=== PATIENT | female | born 1955 | race Caucasian/White ===

== ENCOUNTER 2019-10-16 18:45 | Inpatient (IN) | payer MEDICARE, OTHER, BC ==
[~2019-10-16] VITALS: Ht 154.9 cm; Wt 93.0 kg
--- NOTE | 2019-10-16 19:06 | NUR ---
PT is A/Ox4, BIB RA100 FROM HOME, C/O C/P SINCE TUESDAY. PT IS TACHYPNIC AND SOB ON ARRIVAL. SPO2 91% ON RA, PT PLACED ON SUPPLEMENTAL O2 VIA N/C AT 3 LPM. VSS. SKIN IS WARM AND DRY.
--- NOTE | 2019-10-16 19:08 | NUR ---
SHIFT REPORT GIVEN TO VÍCTOR RIVERA.
--- NOTE | 2019-10-16 19:09 | NUR ---
PT CURRENTLY IS SO ANXIOUS, UNABLE TO ACCURATELY REMEMBER HER MEDICATIONS AND MEDICAL HX. AWAITING FAMILY MEMBERS TO COME, NO PAST RECORDS HERE.
--- NOTE | 2019-10-16 19:10 | NUR ---
RECEIVED HAND OFF AND SBAR FROM OUTGOING DAY SHIFT RN (HERNANDO) PT IS ON HIGH WELLS'S, AOX3 WITH 02 VIA NC AT 3LPM O2SAT AT 97% WITH R AC G20 SALINE LOCK MONITORED ACCORDINGLY WAITING FOR ERMD EXAM NOTED EKG W/ NORMAL RHYTHM AT 95BPM RN ENDORSE NOTICEABLE POSSIBLE LBBB +HX OF AFIB PT C/O CHEST PAIN SINCE TUESDAY CURRENTLY C/O 7/10 PAIN TO R SIDE
[2019-10-16 19:20] LABS: BASOPHILS % (AUTO) 0.2 % (0.0-2.0); EOSINOPHILS % (AUTO) 0.1 % (0.0-7.0); HEMATOCRIT 34.1 % (31.2-41.9); HEMOGLOBIN 11.3 g/dL (10.9-14.3); LYMPHOCYTES # (AUTO) 0.7 K/uL (20.0-40.0); LYMPHOCYTES % (AUTO) 8.3 % (20.5-51.5); MEAN CORPUSCULAR HEMOGLOBIN 27.6 uug (24.7-32.8); MEAN CORPUSCULAR HGB CONC 33 g/dL (32.3-35.6); MEAN CORPUSCULAR VOLUME 83.2 fL (75.5-95.3); MONOCYTES # (AUTO) 0.7 K/uL (2.0-10.0); NEUTROPHILS # (AUTO) 7.2 K/uL (1.8-8.9); NEUTROPHILS % (AUTO) 83.4 % (38.5-71.5); PLATELET COUNT (AUTO) 313 K/uL (179-408); WHITE BLOOD COUNT (AUTO) 8.6 K/uL (3.8-11.8)
[2019-10-16 19:23] LABS: CARBON DIOXIDE 23 mmol/L (21-32); CHLORIDE 97 mmol/L (98-107); CREATININE 1.4 mg/dL (0.6-1.3); POTASSIUM 4.2 mmol/L (3.5-5.1); UREA NITROGEN, BLOOD 22 mg/dL (7-18)
--- NOTE | 2019-10-16 19:25 | NUR ---
ERMD AT BEDSIDE FOR HX AND PHYSICAL
[2019-10-16 19:28] LABS: GLUCOSE 392 mg/dL (74-106)
[2019-10-16] MEDS ORDERED: OSELTAMIVIR PHOSPHATE 75 MG CAPSULE PO ONE (19:30)
[2019-10-16] MEDS ORDERED: AZITHROMYCIN 250 MG TABLET PO ONE (19:30)
[2019-10-16] MEDS ORDERED: VANCOMYCIN 1G/D5W 200 ML PIGGYBACK IV ONE (19:30)
[2019-10-16] MEDS ORDERED: PIPERACILLIN SODIUM/TAZOBACTAM 3.375 G in IV DEXTROSE 5% 50 ML IV ONE (19:30)
[2019-10-16 19:34] LABS: ALANINE AMINOTRANSFERASE 36 U/L (14-59); ALKALINE PHOSPHATASE 49 U/L (50-136); ASPARTATE AMINOTRANSFERASE 21 U/L (15-37); BILIRUBIN,TOTAL 0.4 mg/dL (0.2-1.0); LIPASE 174 U/L (73-393); TOTAL PROTEIN, SERUM 7.9 g/dL (6.4-8.2)
[2019-10-16 19:35] LABS: BILIRUBIN,DIRECT < 0.1 mg/dL (0.0-0.2)
[2019-10-16] MEDS ORDERED: OSELTAMIVIR PHOSPHATE 75 MG CAPSULE ONE (19:36)
[2019-10-16] MEDS ORDERED: PIPERACILLIN/TAZOBACTAM/D5W 50 ML IV ONE (19:36)
[2019-10-16] MEDS ORDERED: AZITHROMYCIN 250 MG TABLET ONE (19:37)
[2019-10-16] MEDS ORDERED: VANCOMYCIN IV 200 ML ONE (19:37)
[2019-10-16 19:46] LABS: THYROID STIMULATING HORMONE 1.562 mIU/mL (0.358-3.740)
[2019-10-16 19:53] LABS: ABG BASE EXCESS -3.6 mmol/L; ABG HCO3 19.2 mmol/L; ABG PCO2 28.1 mmHg (35.0-45.0); ABG PH 7.453 (7.350-7.450); ABG PO2 83.8 mmHg (75.0-100.0); ABG SITE LEFT RADIAL; ABG TOTAL HEMOGLOBIN 11.5 G/dL (12.0-16.0); MetHb 0.3 % (0.0-1.5); O2Hb 94.9 % (94.0-97.0); VENT MODE Nasal Cannula
[2019-10-16] MEDS ORDERED: ASPIRIN 325 MG TABLET PO ONE (20:00)
[2019-10-16] MEDS ORDERED: ENOXAPARIN SODIUM 80 MG/0.8 ML DISP.SYRIN SQ ONE (20:00)
[2019-10-16] MEDS ORDERED: FENO134C PO (20:11)
[2019-10-16] MEDS ORDERED: DOCU250C89 PO (20:11)
[2019-10-16] MEDS ORDERED: PREG50CA PO (20:11)
[2019-10-16] MEDS ORDERED: ERGO500040 PO (20:11)
[2019-10-16] MEDS ORDERED: GLIM4TAB PO (20:11)
[2019-10-16] MEDS ORDERED: GABA-532 PO (20:11)
[2019-10-16] MEDS ORDERED: ESCI10TA PO (20:11)
[2019-10-16] MEDS ORDERED: METO50TA16 PO (20:11)
[2019-10-16] MEDS ORDERED: EMPA10TA PO (20:11)
[2019-10-16] MEDS ORDERED: LOSA50TA3 PO (20:11)
[2019-10-16] MEDS ORDERED: ASPI81TA31 PO (20:11)
[2019-10-16] MEDS ORDERED: SIMV-49 PO (20:11)
[2019-10-16] MEDS ORDERED: AZIT250T13 PO (20:11)
[2019-10-16] MEDS ORDERED: PROM118S4 PO (20:11)
[2019-10-16] MEDS ORDERED: ENOXAPARIN SODIUM 100 MG/ML DISP.SYRIN SQ ONE (20:19)
[2019-10-16] MEDS ORDERED: ASPIRIN 325 MG TABLET ONE (20:20)
[2019-10-16] MEDS ORDERED: FUROSEMIDE 20 MG/2 ML VIAL IV ONE (20:30)
[2019-10-16] MEDS ORDERED: FUROSEMIDE 20 MG/2 ML VIAL ONE (20:41)
[2019-10-16] MEDS ORDERED: MAGNESIUM HYDROXIDE 30 ML LIQUID UDC PO PRN (20:45)
[2019-10-16] MEDS ORDERED: HYDROCODONE/APAP 5-325MG TABLET PO PRN (20:45)
[2019-10-16] MEDS ORDERED: Z GUARD REMEDY PASTE 57 GM TUBE TOP PRN (20:45)
[2019-10-16] MEDS ORDERED: ACETAMINOPHEN 325 MG TABLET PO PRN (20:45)
[2019-10-16] MEDS ORDERED: ONDANSETRON 4 MG/2 ML VIAL IV PRN (20:45)
[2019-10-16 21:22] LABS: *BILIRUBIN,URIN NEGATIVE (NEGATIVE); *BLOOD, URINE NEGATIVE (NEGATIVE); *CLARITY,URINE CLEAR (CLEAR); *COLOR,URINE YELLOW (YELLOW); *KETONES,URINE NEGATIVE (NEGATIVE); *UROBILINOGEN,URINE 0.2 E.U./dl (NORMAL); LEUKOCYTE ESTERASE ,URINE TRACE (NEGATIVE); NITRITE, URINE NEGATIVE (NEGATIVE); PH,URINE 5.5 (5.0-8.0); UGLUCOSE 2+ (NEGATIVE)
[2019-10-16 21:28] LABS: RBC,URINE 0-3 /HPF (0-3); SQUAMOUS EPITHELIAL CELL,UR FEW /HPF (NONE SEEN)
[2019-10-16 21:32] LABS: *AMPHETAMINE, URINE NEGATIVE (NEGATIVE); *BARBITURATE, URINE NEGATIVE (NEGATIVE); *CANNABINOID, URINE NEGATIVE (NEGATIVE); *COCCAINE, URINE NEGATIVE (NEGATIVE); *OPIATE, URINE NEGATIVE (NEGATIVE); *PHENCYCLIDINE SCREEN,URINE NEGATIVE (NEGATIVE)
--- NOTE | 2019-10-16 22:00 | NUR ---
Pt ok to admit to Tele Rm 310 dx: NSTEMI unstable for transfer under Dr Morales
[2019-10-16 22:05] VITALS: BP 119/58
[2019-10-16] MEDS: FUROSEMIDE 40 MG/4 ML VIAL IV SCH ×2 (22:05→22:10)
--- NOTE | 2019-10-16 22:05 | NUR ---
patient received from ER. no s/s of acute distress. v/s stable. lasix administered at 22:05. patient arrived at 22:00. BP WNL. ID band on. IV patent and intact. belongings list completed. will monitor and continue plan of care.
--- NOTE | 2019-10-16 22:10 | NUR ---
PATIENT RECEIVED FROM ER. V/S STABLE. NO SIGNS OF ACUTE DISTRESS. ADMINISTRATION OF LASIX, BP WNL. WILL CONTINUE TO MONITOR.
--- NOTE | 2019-10-16 22:10 | NUR ---
Ricci thomas in [facility] - 10/16/19 at 2239 by DAVIDSON pt transported to floor
--- NOTE | 2019-10-16 22:11 | NUR ---
Hand off and SBAR given to Katie RIVERA
--- NOTE | 2019-10-16 22:15 | NUR ---
TRANSPORTED TO FLOOR
[2019-10-16] MEDS ORDERED: PIPERACILLIN/TAZOBACTAM/D5W 100 ML IV ONE (22:53)
[2019-10-17] VITALS: BP 129/64
[2019-10-17] MEDS: PIPERACILLIN SODIUM/TAZOBACTAM 3.375 G in IV DEXTROSE 5% 50 ML IV SCH ×2 (00:10→05:02)
--- NOTE | 2019-10-17 00:36 | NUR ---
DR. GREENWOOD ORDERED [facility] MILD SLIDING SCALE FOR PATIENT.
[2019-10-17] MEDS ORDERED: DEXTROSE 50% 50 ML DISP.SYRIN IV PRN (00:45)
[2019-10-17] MEDS: BLOOD SUGAR DIAGNOSTIC 1 EACH STRIP VI SCH ×4 (01:05→17:55)
[2019-10-17] MEDS ORDERED: INSULIN REGULAR, HUMAN 300 UNIT/3 ML VIAL ONE (01:11)
[2019-10-17] MEDS: INSULIN REGULAR, HUMAN 300 UNIT/3 ML VIAL SQ PRN ×4 (01:17→17:56)
[2019-10-17 05:18] VITALS: BP 101/48
[2019-10-17 06:14] LABS: BASOPHILS % (AUTO) 0.4 % (0.0-2.0); EOSINOPHILS # (AUTO) 0.1 K/uL (0.0-0.7); EOSINOPHILS % (AUTO) 0.8 % (0.0-7.0); HEMOGLOBIN 10.8 g/dL (10.9-14.3); LYMPHOCYTES # (AUTO) 1.4 K/uL (20.0-40.0); LYMPHOCYTES % (AUTO) 20.6 % (20.5-51.5); MEAN CORPUSCULAR HEMOGLOBIN 27.7 uug (24.7-32.8); MEAN CORPUSCULAR HGB CONC 34 g/dL (32.3-35.6); MONOCYTES # (AUTO) 0.7 K/uL (2.0-10.0); MONOCYTES % (AUTO) 10.9 % (0.0-11.0); NEUTROPHILS # (AUTO) 4.5 K/uL (1.8-8.9); NEUTROPHILS % (AUTO) 67.3 % (38.5-71.5); PLATELET COUNT (AUTO) 293 K/uL (179-408); WHITE BLOOD COUNT (AUTO) 6.7 K/uL (3.8-11.8)
[2019-10-17 06:45] LABS: CREATININE 1.6 mg/dL (0.6-1.3); PHOSPHOROUS 3.6 mg/dL (2.5-4.9); POTASSIUM 3.2 mmol/L (3.5-5.1)
[2019-10-17 06:49] LABS: MAGNESIUM 1.2 mg/dL (1.8-2.4)
--- NOTE | 2019-10-17 07:04 | NUR ---
CRITICAL LAB VALUE FOR MG 1.2 REPORTED BY MELISSA IN LAB. DR. COUCH CONTACTED.
--- NOTE | 2019-10-17 07:20 | NUR ---
WILL ENDORSE TO MORNING NURSE TO FOLLOW UP WITH IZA
--- NOTE | 2019-10-17 07:28 | NUR ---
DR. COUCH AWARE OF CRITICAL VALUE MG 1.2. NO NEW ORDERS PLACED.
--- NOTE | 2019-10-17 08:00 | NUR ---
Received pt. resting in bed alert oriented x4. Pt. states she has pain in her lower back. Assessed pain. Will provide pt. with PRN Tylenol. Pt. denies SOB/ difficulty breathing. Pt. on 2 L NC. Safety measures in place. call light within reach. will continue to monitor pt.
[2019-10-17] MEDS: FUROSEMIDE 40 MG/4 ML VIAL IV SCH (08:38)
[2019-10-17] MEDS ORDERED: POTASSIUM CHLORIDE 20 MEQ POWDER PACKET PO ONE (09:15)
[2019-10-17] MEDS: MAGNESIUM SULFATE/D5W 100 ML IV SCH ×4 (09:23→14:09)
[2019-10-17] MEDS ORDERED: ATORVASTATIN 40 MG TABLET PO SCH (09:26)
[2019-10-17] MEDS ORDERED: ASPIRIN 81 MG TAB.CHEW PO SCH (09:30)
[2019-10-17] MEDS ORDERED: METOPROLOL SUCCINATE XL 25 MG TAB.SR.24H PO SCH (09:30)
--- NOTE | 2019-10-17 09:30 | NUR ---
Pt. had elevated troponin of 1.711 critical lab value reported to Dr. Pollard. Associate Genetics Professor aware and put in new orders
[2019-10-17] MEDS ORDERED: LOSARTAN POTASSIUM 50 MG TABLET PO SCH (10:15)
[2019-10-17] MEDS ORDERED: ENOXAPARIN SODIUM 100 MG/ML DISP.SYRIN SQ SCH (11:00)
[2019-10-17 11:35] VITALS: BP 113/55
[2019-10-17] MEDS ORDERED: PIPERACILLIN SODIUM/TAZOBACTAM 3.375 G in IV DEXTROSE 5% 50 ML IV SCH (14:00)
[2019-10-17] MEDS ORDERED: GUAIFENESIN SUGAR FREE 100 MG/5 ML UDC PO PRN (14:30)
[2019-10-17 15:43] LABS: CREATININE 1.9 mg/dL (0.6-1.3); POTASSIUM 3.7 mmol/L (3.5-5.1)
[2019-10-17 16:22] VITALS: BP 100/79
--- NOTE | 2019-10-17 16:34 | NUR ---
Pt. had elevated troponin trending down. Critical lab value made aware to manager house. Telephone order to do chest x ray put in. Vital signs stable. safety measures in place.
[2019-10-17] MEDS ORDERED: PREGABALIN 50 MG CAPSULE PO SCH (17:00)
[2019-10-17] MEDS ORDERED: DOCUSATE SODIUM 250 MG CAPSULE PO SCH (17:00)
[2019-10-17] MEDS ORDERED: METOPROLOL TARTRATE 50 MG TABLET PO SCH (17:00)
[2019-10-17] MEDS ORDERED: METOPROLOL SUCCINATE XL 25 MG TAB.SR.24H PO STA (17:32)
[2019-10-17] MEDS ORDERED: LORAZEPAM 2 MG/1 ML VIAL IV STA (17:49)
[2019-10-17 17:54] VITALS: BP 109/64
[2019-10-17] MEDS ORDERED: NITROGLYCERIN 0.4 MG/TAB BOTTLE SL PRN (18:00)
--- NOTE | 2019-10-17 18:49 | NUR ---
Pt. started feeling chest pain and pain radiating to left arm. On phone with Dr. Pollard to order SL nitroglycerin and metoprolol. Provided pt. with nitroglycerin and metoprolol. Order to give ativan holding ativan due to BP at the moment. BP stable at 95/53 HR in 120s highest 127. Pt. on 4L NC Oxygen at 96. Engineering Illustrator aware. Ambulance here but women's studies professor does not want pt. to be transferred until doctor sees patient. stat EKG done at 1759. Blood sugar checked 226 given insulin per sliding scale. Rapid Response called at 1805. Pt. to be transferred to ER with Dr. Smart.
[2019-10-18] MEDS ORDERED: GABAPENTIN 100 MG CAPSULE PO SCH (09:00)
[2019-10-18] MEDS ORDERED: ESCITALOPRAM OXALATE 10 MG TABLET PO SCH (09:00)
[2019-10-18] MEDS ORDERED: FENOFIBRATE NANOCRYSTALLIZED 48 MG TABLET PO SCH (09:00)
[2019-10-18] MEDS ORDERED: SIMVASTATIN 40 MG TABLET PO SCH (09:00)
[2019-10-18] MEDS ORDERED: ERGOCALCIFEROL 50,000 UNIT CAPSULE PO SCH (09:00)
[2019-10-18] MEDS ORDERED: ASPIRIN 81 MG TAB.CHEW PO SCH (09:00)
[2019-10-18] MEDS ORDERED: Medication Not On Formulary EA (Fenofibrate,Micronized (Fenofibrate) 134 MG) PO SCH (09:00)
== END 2019-10-17 19:46 | disposition short-term general hospital (02) | DRG 280 ==
LOC: ER 18:48 → TELE3 21:47
PROVIDERS: ADMIT Internal Medicine; ATTEND Internal Medicine
DX: I21.4 Non-ST elevation (NSTEMI) myocardial infarction (principal); I50.23 Acute on chronic systolic (congestive) heart failure; N17.0 Acute kidney failure with tubular necrosis; I13.0 Hypertensive heart and chronic kidney disease with heart failure and stage 1 through stage 4 chronic kidney disease, or unspecified chronic kidney disease; E66.01 Morbid (severe) obesity due to excess calories; E78.5 Hyperlipidemia, unspecified; E11.42 Type 2 diabetes mellitus with diabetic polyneuropathy; Z85.43 Personal history of malignant neoplasm of ovary; E83.42 Hypomagnesemia; Z79.4 Long term (current) use of insulin; Z92.21 Personal history of antineoplastic chemotherapy; I27.20 Pulmonary hypertension, unspecified; I45.9 Conduction disorder, unspecified; E11.22 Type 2 diabetes mellitus with diabetic chronic kidney disease; N18.9 Chronic kidney disease, unspecified; E87.6 Hypokalemia; I25.10 Atherosclerotic heart disease of native coronary artery without angina pectoris
CPT/HCPCS: 36415; 36600; 70030-TC; 71045; 80307; 83605; 83690; 83735; 84100; 84443; 85025; 85730; 87086; 87400; 93005; 93307; A4663; G0378; J1650; J1815; J1940; J2543; J3370; J3475; J7040; J7060; Q0144

== ENCOUNTER 2019-10-17 18:44 | Emergency (ER) | payer MEDICARE, BC ==
[~2019-10-17] VITALS: Ht 157.5 cm; Wt 95.3 kg
[~2019-10-17 18:44] MED LIST: ASPI81TA31 PO; AZIT250T13 PO; DOCU250C89 PO; EMPA10TA PO; ERGO500040 PO; ESCI10TA PO; FENO134C PO; GABA-532 PO; GLIM4TAB PO; LOSA50TA3 PO; METO50TA16 PO; PREG50CA PO; PROM118S4 PO; SIMV-49 PO
--- NOTE | 2019-10-17 18:50 | NUR ---
pt is in room #1a. dr martinez evaluated the pt.
--- NOTE | 2019-10-17 19:00 | NUR ---
pt was transfered from telemetry floor to er under dr martinez supervision and according to his order for obsevation before pt will be transfered to [facility] for scheduled procedure.
[2019-10-17 19:01] LABS: BASOPHILS % (AUTO) 0.1 % (0.0-2.0); EOSINOPHILS % (AUTO) 0.2 % (0.0-7.0); HEMATOCRIT 33.2 % (31.2-41.9); HEMOGLOBIN 10.9 g/dL (10.9-14.3); LYMPHOCYTES # (AUTO) 0.7 K/uL (20.0-40.0); LYMPHOCYTES % (AUTO) 6.5 % (20.5-51.5); MEAN CORPUSCULAR HEMOGLOBIN 27.1 uug (24.7-32.8); MEAN CORPUSCULAR HGB CONC 33 g/dL (32.3-35.6); MEAN CORPUSCULAR VOLUME 82.4 fL (75.5-95.3); MONOCYTES # (AUTO) 0.6 K/uL (2.0-10.0); MONOCYTES % (AUTO) 6.3 % (0.0-11.0); NEUTROPHILS # (AUTO) 8.8 K/uL (1.8-8.9); NEUTROPHILS % (AUTO) 86.9 % (38.5-71.5); PLATELET COUNT (AUTO) 329 K/uL (179-408); RED BLOOD CELL COUNT(AUTO) 4.03 MIL/uL (3.63-4.92); WHITE BLOOD COUNT (AUTO) 10.1 K/uL (3.8-11.8)
--- NOTE | 2019-10-17 19:03 | NUR ---
PT's DOUGHTER AT THE BEDSIDE. PT DENIES C/P AT THIS TIME. NO SOB. NO N/V.
--- NOTE | 2019-10-17 19:05 | NUR ---
REPORT WAS GIVEN TO COMPLIANCE REVIEWER RN,
[2019-10-17 19:06] LABS: CREATININE 1.7 mg/dL (0.6-1.3); POTASSIUM 3.6 mmol/L (3.5-5.1)
--- NOTE | 2019-10-17 19:10 | NUR ---
RECEIVED HAND OFF AND SBAR FR OUTGOING DAY SHIFT RN ERMD AT BEDSIDE, W/ PATRICIA (CHEST/HEART) RT AT BEDSIDE WITH CPAP W/ RELATIVES AT BEDSIDE PT ON CPAP, W/ R AC G20 TOBRAMYCIN INFUSING WELL PT ON SEMIFOWLER'S C/O SOB BEFORE BEING TRANSPORTED FOR PSYCHIATRIC RN(MARCIE BROWN) AROUND 184
[2019-10-17] MEDS ORDERED: ONDANSETRON ODT 4 MG TAB.RAPDIS ONE (19:15)
--- NOTE | 2019-10-17 19:35 | NUR ---
PT WAS REMOVED OFF OF CPAP SHIFTED TO NC AT 4LPM O2SAT AT 94-95% PT ABLE TO TRANSFER TO BEDSIDE COMMODE VOIDED WELL
--- NOTE | 2019-10-17 20:18 | NUR ---
PT RELAXED, KEPT COMFORTABLE CURRENTLY DENIES PAIN NC AT 5LPM WITH 96%
--- NOTE | 2019-10-17 20:35 | NUR ---
PATRICIA MONTESINOS AT BEDSIDE
--- NOTE | 2019-10-17 20:48 | NUR ---
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
--- NOTE | 2019-10-17 21:00 | NUR ---
CONTACTED [facility] FOR ACLS TRANSFER. ETA 45-1HR . TRIP# [id number]
[2019-10-17] MEDS ORDERED: FUROSEMIDE 20 MG/2 ML VIAL ONE (21:06)
[2019-10-17] MEDS ORDERED: FUROSEMIDE 20 MG/2 ML VIAL IV ONE (21:15)
--- NOTE | 2019-10-17 21:50 | NUR ---
HAND OFF AND SBAR GIVEN TO DALLIN RN PT OK TO ADMIT TO ICU RM 256 UNDER SHY/ SONI DX: PNA/STABLE NSTEMI WITH INSTRUCTIONS FROM HOSPITALIST (SONI) ORDERS TO DRAW AT 5AM TOMORROW (10/18/19) PT TO BE BROUGHT TO [facility] THEN CLEARED TO TRANSPORT TO ICU PT ON FALL PRECATIONS, NO ISOLATION PRECS LAST ORAL INTAKE WAS NOON, DIABETIC DIET, ATE 100%
--- NOTE | 2019-10-17 21:56 | NUR ---
PT PICKED UP BY [facility] FOR TRANSFER TO [facility] AT 4LPM +R AC G20 SLAINE LOCK ON MILD DISABILITIES TEACHER PT IS AOX3 (MAINLY SPEAKS CAMEROONIAN) AMBULATORY W/ ASSIST TO BEDSIDE COMMODE SKIN INTACT
== END 2019-10-17 22:06 | disposition short-term general hospital (02) ==
LOC: ER 18:45
DX: R06.00 Dyspnea, unspecified (principal); Z79.899 Other long term (current) drug therapy; Z79.82 Long term (current) use of aspirin
CPT/HCPCS: 36415; 71045; 80048; 83880; 84484; 85025; 93005 ×2; 93970; 94660; 96374; 99285; J1940; 70030-TC; A4663; Q0162